=== PATIENT | female | born 1985 | race Caucasian/White ===

== ENCOUNTER 2018-07-31 09:51 | Emergency (ER) | payer OTHER ==
[~2018-07-31] VITALS: Ht 162.6 cm; Wt 93.2 kg
[~2018-07-31 09:51] MED LIST: ZONI25CA2 PO
[2018-07-31 09:52] VITALS: BP 128/77
[2018-07-31] MEDS ORDERED: LISI10TA4 PO (10:01)
[2018-07-31] MEDS ORDERED: propanolol PO (10:01)
[2018-07-31] MEDS ORDERED: RANI1SYP PO (10:01)
[2018-07-31] MEDS ORDERED: SERT-138 PO (10:01)
[2018-07-31] MEDS ORDERED: HYDR-643 PO (10:01)
[2018-07-31] MEDS ORDERED: ZITHTAB PO (10:33)
[2018-07-31] MEDS ORDERED: MAGICMW SSP (10:34)
== END 2018-07-31 10:40 | disposition home or self-care (01) ==
LOC: M ED 09:51
DX: H66.91 Otitis media, unspecified, right ear (principal); J02.9 Acute pharyngitis, unspecified; I10 Essential (primary) hypertension; K21.9 Gastro-esophageal reflux disease without esophagitis; F32.9 Major depressive disorder, single episode, unspecified; R51 Headache; Z88.0 Allergy status to penicillin; Z79.899 Other long term (current) drug therapy

== ENCOUNTER → 2019-07-23 | Outpatient (REF) | payer OTHER ==
[~2019-07-23] MED LIST changes: +HYDR-643 PO; +LISI10TA4 PO; +MAGICMW SSP; +RANI1SYP PO; +SERT-138 PO; +ZITHTAB PO; +propanolol PO
[2019-07-23 21:05] LABS: CHLAMYDIA DNA AMPLIFICATION NEGATIVE (NEGATIVE); GC DNA AMPLIFICATION NEGATIVE (NEGATIVE)
== END ==
LOC: M SFHCLERA 11:42
PROVIDERS: ATTEND Nurse Practitioner Family
DX: R11.2 Nausea with vomiting, unspecified (principal)
CPT/HCPCS: 81002; 87086; 87661; G0463

== ENCOUNTER 2019-11-20 12:49 | Emergency (ER) | payer OTHER ==
[~2019-11-20] VITALS: Ht 162.6 cm; Wt 101.6 kg
[2019-11-20 12:50] VITALS: BP 122/77
--- NOTE | 2019-11-21 09:16 | REP ---
Clinical: Left hand pain centered at fourth metacarpal. Technique: AP, lateral, bilateral oblique views left hand . Findings: The osseous structures and joint spaces are intact and normal. There is no evidence for acute fracture or dislocation. Surrounding soft tissues are unremarkable. No subcutaneous emphysema or radiodense foreign body. Impression: No acute fracture or dislocation. Electronically Signed by Landon Garcia MD 11/20/2019 01:18 P
== END 2019-11-20 13:44 | disposition home or self-care (01) ==
LOC: M ED 12:49
DX: S63.92XA Sprain of unspecified part of left wrist and hand, initial encounter (principal); X58.XXXA Exposure to other specified factors, initial encounter; Y92.89 Other specified places as the place of occurrence of the external cause; I10 Essential (primary) hypertension; K21.9 Gastro-esophageal reflux disease without esophagitis; Z79.899 Other long term (current) drug therapy; Z88.0 Allergy status to penicillin; Z87.891 Personal history of nicotine dependence

== ENCOUNTER 2020-04-13 18:28 | Emergency (ER) | payer OTHER ==
[~2020-04-13] VITALS: Ht 162.6 cm; Wt 101.3 kg
--- NOTE | 2020-04-13 21:50 | REPVR ---
PROCEDURE INFORMATION: Exam: US Abdomen; Limited Exam date and time: 04/13/2020 9:34 PM Age: 34 years old Clinical indication: Abdominal pain; Other: Luq; Additional info: Luq ttp after lifting TECHNIQUE: Imaging protocol: US abdomen. Real time ultrasound with image documentation. Limited exam focused on the left upper quadrant. COMPARISON: No relevant prior studies available. FINDINGS: Spleen: Unremarkable. Left kidney: Unremarkable. No mass. No definite calculi. No hydronephrosis. IMPRESSION: No acute sonographic findings. Electronically signed by: Nagi Lomax On 04/13/2020 21:50:30 PM
[2020-04-13 21:51] LABS: BASO % 0.3 % (0.0-1.0); EOS # 0.1 10^3/uL (0.0-0.5); EOS % 1.2 % (0.0-3.0); HEMATOCRIT 40.4 % (36.0-47.0); HEMOGLOBIN 12.7 g/dl (12.0-15.5); LYMPH # 2.3 10^3/uL (1.5-5.0); LYMPH % 25.1 % (24.0-44.0); MEAN CORPUSCULAR HEMOGLOBIN 26.3 pg (27.0-33.0); MEAN CORPUSCULAR HGB CONC 31.4 g/dl (32.0-36.5); MEAN CORPUSCULAR VOLUME 83.6 fl (80.0-96.0); MONO # 0.6 10^3/uL (0.0-0.8); MONO % 6.1 % (0.0-5.0); NEUTROPHILS # 6.1 10^3/uL (1.5-8.5); NEUTROPHILS % 67.1 % (36.0-66.0); PLATELET COUNT, AUTOMATED 321 10^3/uL (150-450); RED BLOOD COUNT 4.83 10^6/uL (4.00-5.40); WHITE BLOOD COUNT 9.1 10^3/uL (4.0-10.0)
[2020-04-13 22:20] LABS: ALBUMIN 3.7 GM/DL (3.2-5.2); ALT/SGPT 20 U/L (12-78); BILIRUBIN,DIRECT < 0.1 MG/DL (0.0-0.2); BILIRUBIN,TOTAL 0.3 MG/DL (0.2-1.0); BLOOD UREA NITROGEN 12 MG/DL (7-18); CALCIUM LEVEL 8.9 MG/DL (8.5-10.1); CARBON DIOXIDE LEVEL 26 MEQ/L (21-32); CHLORIDE LEVEL 114 MEQ/L (98-107); GLOMERULAR FILTRATION RATE > 60.0 (>60); GLUCOSE, FASTING 94 MG/DL (70-100); LIPASE 103 U/L (73-393); POTASSIUM SERUM 4.2 MEQ/L (3.5-5.1); SODIUM LEVEL 145 MEQ/L (136-145); TOTAL PROTEIN 7.8 GM/DL (6.4-8.2)
[2020-04-13 22:32] VITALS: BP 136/84
== END 2020-04-13 22:20 | disposition home or self-care (01) ==
LOC: M ED 18:28
DX: S39.011A Strain of muscle, fascia and tendon of abdomen, initial encounter (principal); X50.0XXA Overexertion from strenuous movement or load, initial encounter; Y92.9 Unspecified place or not applicable; I10 Essential (primary) hypertension; Z79.899 Other long term (current) drug therapy; Z88.0 Allergy status to penicillin; Y93.9 Activity, unspecified; Y99.9 Unspecified external cause status

== ENCOUNTER → 2025-02-17 | Outpatient (CLI) | payer OTHER ==
[~2025-02-17] MED LIST changes: +LISI10TA22 PO; -LISI10TA4 PO
== END ==
LOC: M RAD 15:45
PROVIDERS: ATTEND Otolaryngology
DX: R59.0 Localized enlarged lymph nodes (principal)

== ENCOUNTER → 2025-04-06 | Outpatient (CLI) | payer OTHER | LOC: M SLEEP 20:00 | PROVIDERS: ATTEND Nurse Practitioner Family | DX: R06.83 Snoring (principal) ==